=== PATIENT | male | born 1965 | race Caucasian/White ===

== ENCOUNTER 2020-01-29 09:39 | Day surgery (SDC) | payer BC ==
[2020-01-27 14:47] VITALS: BMI 32.5
[~2020-01-29 09:39] MED LIST: LACTATED RINGERS 1,000 ML IV SCH
[2020-01-29 10:02] VITALS: PULSE 84; RESP 16; TEMP 97.5
[2020-01-29 10:03] LABS: Glucose,Whole Blood 152 mg/dL (75-99)
[2020-01-29] MEDS ORDERED: LIDOCAINE 1% (10MG/ML) FOR IV START INTRADERMA ONE (10:03)
[2020-01-29] MEDS ORDERED: PROPOFOL 10 MG/ML 20 ML VIAL IV ONE (10:16)
--- NOTE | 2020-01-29 10:23 | P.GSHP ---
History of Present Illness H&P Date: 01/29/20 Chief Complaint: Screening colonoscopy This a 54-year-old male presents today for screening colonoscopy. Patient denies a significant GI complaints. Past Medical History Past Medical History: Atrial Fibrillation, Diabetes Mellitus, Hypertension History of Any Multi-Drug Resistant Organisms: None Reported Past Surgical History: No Surgical Hx Reported Additional Past Surgical History / Comment(s): rt shoulder cyst on clavicle Past Anesthesia/Blood Transfusion Reactions: No Reported Reaction Smoking Status: Never smoker - Past Family History Father Family Medical History: Coronary Artery Disease (CAD) Mother Family Medical History: Cancer Additional Family Medical History / Comment(s): OVARIAN CANCER Medications and Allergies Home Medications Medication Instructions Recorded Confirmed Type Lisinopril [Prinivil] 5 mg PO DAILY 03/01/15 01/29/20 History Aspirin 325 mg PO DAILY 01/27/20 01/29/20 History Cholecalciferol [Vitamin D3 (25 1,000 unit PO DAILY 01/27/20 01/29/20 History Mcg = 1000 Iu)] Cyanocobalamin (Vitamin B-12) 1,000 mcg PO DAILY 01/27/20 01/29/20 History [Vitamin B-12] Glimepiride [Amaryl] 1 mg PO BID 01/27/20 01/29/20 History [place]-3 Fatty Acids/Fish Oil [Fish 1 each PO DAILY 01/27/20 01/29/20 History Oil 1,000 mg Softgel] Propafenone [Rythmol] 150 mg PO TID 01/27/20 01/29/20 History sitaGLIPtin PHOS/metFORMIN HCL 1 each PO BID 01/27/20 01/29/20 History [Janumet 50-1,000 mg Tablet] Allergies Allergy/AdvReac Type Severity Reaction Status Date / Time No Known Allergies Allergy Verified 01/27/20 14:39 Surgical - Exam Vital Signs Temp Pulse Resp BP Pulse Ox 97.5 F L 84 16 198/124 97 01/29/20 09:53 01/29/20 09:53 01/29/20 09:53 01/29/20 09:53 01/29/20 09:53 - General well developed, well nourished, no distress - Eyes PERRL - ENT normal pinna - Neck no masses - Respiratory normal expansion - Cardiovascular Rhythm: regular - Abdomen Abdomen: soft, non tender Results - Labs Abnormal Lab Results - Last 24 Hours (Table) 01/29/20 Range/Units 10:00 POC Glucose (mg/dL) 152 H (75-99) mg/dL Assessment and Plan Assessment: We'll perform screening colonoscopy.
--- NOTE | 2020-01-29 10:29 | P.OP ---
Date of Procedure: 01/29/20 Preoperative Diagnosis: Screening colonoscopy Postoperative Diagnosis: Normal colonoscopy Procedure(s) Performed: Colonoscopy Anesthesia: MAC Surgeon: Koko Franco Pathology: none sent Condition: stable Disposition: PACU Description of Procedure: Normal colonoscopy
[2020-01-29 10:37] VITALS: BP 128/85
--- NOTE | 2020-02-02 10:01 | CDI ---
Outpatient Documentation Clarification Form Date: 02/02/20 CDS/Botany Teacher Name: Deanne Best Phone: If any questions, call Joie Major Private Branch Exchange Repairer at [phone] Patient Name: Brenden Wen Admit Date: 01/29/20 Discharge Date: 01/29/20 ATTENTION: The [facility] Coding Staff appreciate your assistance in clarifying documentation. Please respond to the clarification below the line at the bottom and electronically sign. The [facility] Coding staff will review the response and follow-up if needed. Please note: Queries are made part of the Legal Health Record. If you have any questions, please contact the Private Branch Exchange Repairer. Dear Dr. Franco, Please provide an addendum to the procedure note for this patient. Please include the procedure description in the addendum. Thank you for your kind consideration. SHAILA
== END 2020-01-29 11:00 | disposition home or self-care (01) ==
LOC: ORWHC2ENDO 09:39
PROVIDERS: ATTEND Surgery
DX: Z12.11 Encounter for screening for malignant neoplasm of colon (principal); I48.91 Unspecified atrial fibrillation; E11.9 Type 2 diabetes mellitus without complications; I10 Essential (primary) hypertension; Z98.890 Other specified postprocedural states; Z82.49 Family history of ischemic heart disease and other diseases of the circulatory system; Z80.41 Family history of malignant neoplasm of ovary; Z79.84 Long term (current) use of oral hypoglycemic drugs; Z79.82 Long term (current) use of aspirin; Z79.899 Other long term (current) drug therapy
CPT/HCPCS: J2704; G0121; 45378

== ENCOUNTER 2021-02-17 16:22 | Emergency (ER) | payer BC ==
--- NOTE | 2021-02-17 18:22 | ED ---
General Adult HPI <Panchito Mayo - Last Filed: 02/17/21 18:19> - General Source: patient, RN notes reviewed, old records reviewed <Luke Berrios - Last Filed: 02/17/21 20:27> - General Stated complaint: weakness, SOB, cough Time Seen by Provider: 02/17/21 18:20 - History of Present Illness Initial comments: Patient seen for advanced triage purposes: Patient is a 52-year-old male presenting for not feeling well for about a week. patient has had a cough and some shortness of breath. He has been weak as well. No fevers at home however has felt clammy. patient has also had congestion. patient's had covid which was diagnosed 2 weeks ago. Patient has no other complaints at this time including chest pain, abdominal pain, nausea or vomiting, headache, or visual changes. (Panchito Mayo) This is a 55-year-old male presents emergency room stating he's been not feeling good for about 45 days. Patient states today he started having a cough and shortness of breath per patient states she's been exposed to his went COVID. Patient states she has not yet got the vaccine. Patient states he also started having a fever today which she had not been expansion prior to that. Patient denies any loss of taste or smell denies any diarrhea. Patient denies any chest pain or palpitations. Patient denies abdominal pain. Patient denies any nausea vomiting. Patient denies headache patient denies any numbness weakness. Patient denies any lightheadedness. (Luke Berrios) - Related Data Home Medications Medication Instructions Recorded Confirmed Lisinopril [Prinivil] 5 mg PO DAILY 03/01/15 02/17/21 Aspirin 325 mg PO DAILY 01/27/20 02/17/21 Glimepiride [Amaryl] 1 mg PO BID 01/27/20 02/17/21 [place]-3 Fatty Acids/Fish Oil [Fish 1 cap PO DAILY 01/27/20 02/17/21 Oil 1,000 mg Softgel] Propafenone [Rythmol] 150 mg PO TID 01/27/20 02/17/21 sitaGLIPtin PHOS/metFORMIN HCL 1 tab PO BID 01/27/20 02/17/21 [Janumet 50-1,000 mg Tablet] Dulaglutide [Trulicity] 1.5 mg SQ MO 02/17/21 02/17/21 Previous Rx's Medication Instructions Recorded Dexamethasone [Decadron] 6 mg PO DAILY #7 tablet 02/17/21 Allergies Allergy/AdvReac Type Severity Reaction Status Date / Time No Known Allergies Allergy Verified 02/17/21 19:14 Review of Systems ROS Other: All systems not noted in ROS Statement are negative. <Panchito Mayo - Last Filed: 02/17/21 18:19> ROS Other: All systems not noted in ROS Statement are negative. <Luke Berrios - Last Filed: 02/17/21 20:27> ROS Statement: Those systems with pertinent positive or pertinent negative responses have been documented in the HPI. Past Medical History Past Medical History: Atrial Fibrillation, Diabetes Mellitus, Hypertension History of Any Multi-Drug Resistant Organisms: None Reported Past Surgical History: No Surgical Hx Reported Additional Past Surgical History / Comment(s): rt shoulder cyst on clavicle Past Anesthesia/Blood Transfusion Reactions: No Reported Reaction Smoking Status: Never smoker - Past Family History Father Family Medical History: Coronary Artery Disease (CAD) Mother Family Medical History: Cancer Additional Family Medical History / Comment(s): OVARIAN CANCER <Panchito Mayo - Last Filed: 02/17/21 18:19> General Exam General appearance: alert Head exam: Present: atraumatic Eye exam: Present: normal appearance, PERRL, EOMI. Absent: scleral icterus, conjunctival injection Respiratory exam: Absent: respiratory distress <Panchito Mayo - Last Filed: 02/17/21 18:19> <Luke Berrios - Last Filed: 02/17/21 20:27> - General Exam Comments Initial Comments: GENERAL: Patient is well-developed and well-nourished. Patient is nontoxic and well- hydrated and is in mild distress. ENT: Neck is soft and supple. No significant lymphadenopathy is noted. Oropharynx is clear. Moist mucous membranes. Neck has full range of motion without eliciting any pain. EYES: The sclera were anicteric and conjunctiva were pink and moist. Extraocular movements were intact and pupils were equal round and reactive to light. Eyelids were unremarkable. PULMONARY: Unlabored respirations. Good breath sounds bilaterally. No audible rales rhonchi or wheezing was noted. CARDIOVASCULAR: There is a regular rate and rhythm without any murmurs gallops or rubs. ABDOMEN: Soft and nontender with normal bowel sounds. SKIN: Skin is clear with no lesions or rashes and otherwise unremarkable. NEUROLOGIC: Patient is alert and oriented x3. Cranial nerves II through XII are grossly intact. Motor and sensory are also intact. Normal speech, volume and content. Symmetrical smile. MUSCULOSKELETAL: Normal extremities with adequate strength and full range of motion. LYMPHATICS: No significant lymphadenopathy is noted PSYCHIATRIC: Normal psychiatric evaluation. (Luke Berrios) Course Vital Signs 02/17/21 02/17/21 02/17/21 18:19 19:48 20:08 Temperature 103.4 F H 100 F H Pulse Rate 62 94 Respiratory 18 20 Rate Blood Pressure 134/87 114/84 O2 Sat by Pulse 98 95 Oximetry Medical Decision Making <Luke Berrios - Last Filed: 02/17/21 20:27> - Medical Decision Making Patient's chest x-ray shows slight infiltrates consistent with "pneumonia. Patient got Decadron 10 mg IV push in the emergency department. Patient also received monoclonal antibodies. (Luke Berrios) - Lab Data Lab Results 02/17/21 Range/Units 18:54 Coronavirus (PCR) Detected A (Not Detectd) Disposition <Panchito Mayo - Last Filed: 02/17/21 18:19> Is patient prescribed a controlled substance at d/c from ED?: No Time of Disposition: 20:26 <Luke Berrios - Last Filed: 02/17/21 20:27> Clinical Impression: Pneumonia due to COVID-19 virus Disposition: HOME SELF-CARE Condition: Good Instructions (If sedation given, give patient instructions): Coronavirus Disease 2019 (COVID-19) Additional Instructions: Patient should return if there is any difficulty breathing Prescriptions: Dexamethasone [Decadron] 6 mg PO DAILY #7 tablet Referrals: Ana Lilia Singh MD [Primary Care Provider] - 1-2 days
[2021-02-17] MEDS ORDERED: IBUPROFEN 600 MG TAB PO STA (18:23)
[2021-02-17] MEDS ORDERED: ACETAMINOPHEN TAB 500 MG TAB PO STA (18:23)
[2021-02-17] MEDS ORDERED: SODIUM CHLORIDE 0.9% 50 ML IVPB ONE (19:30)
[2021-02-17] MEDS ORDERED: BAMLANIVIMAB (EUA) 700 MG, ETESEVIMAB (EUA) 1,400 MG in SODIUM CHLORIDE 0.9% 50 ML IVPB ONE (19:45)
[2021-02-17 19:51] VITALS: TEMP 100
--- NOTE | 2021-02-17 20:01 | XR ---
EXAMINATION TYPE: XR chest 2V DATE OF EXAM: 02/17/2021 CLINICAL HISTORY: cough. TECHNIQUE: Frontal and lateral view of the chest. COMPARISON: 03/01/2015 FINDINGS: The cardiomediastinal silhouette is within normal limits for size. Pulmonary vasculature i s normal. There are mild subtle patchy peripheral airspace opacities over the bilateral lung bases an d right midlung. No pleural effusion. No pneumothorax seen. No acute displaced osseous fracture. IMPRESSION: Mild subtle patchy airspace opacities may represent atypical pneumonia including Covid 19.
[2021-02-17 20:13] VITALS: BP 114/84; PULSE 94; RESP 20
[2021-02-17] MEDS ORDERED: DEXAMETHASONE SOD PHOSPHATE 10 MG/ML 1 ML VIAL IVP STA (20:24)
== END 2021-02-17 22:11 | disposition home or self-care (01) ==
LOC: EC 16:22
DX: U07.1 COVID-19 (principal); J12.82 Pneumonia due to coronavirus disease 2019; E11.9 Type 2 diabetes mellitus without complications; I10 Essential (primary) hypertension; I48.91 Unspecified atrial fibrillation; Z79.82 Long term (current) use of aspirin; Z79.52 Long term (current) use of systemic steroids; Z79.84 Long term (current) use of oral hypoglycemic drugs
CPT/HCPCS: 87635; 71046; 96365; 96375; 99285; J1100; J3490

== ENCOUNTER 2023-12-21 16:47 | Inpatient (IN) | payer BC ==
--- NOTE | 2023-12-21 17:26 | ED ---
Extremity Problem HPI - General Chief complaint: Extremity Injury, Lower Stated complaint: Left toe infection spreading Time Seen by Provider: 12/21/23 17:15 Source: patient, family, RN notes reviewed Mode of arrival: ambulatory Limitations: no limitations - History of Present Illness Initial comments: This is a 58-year-old male who presents to the emergency department for a left second toe infection. The infection started about 3 weeks ago. He went to a different emergency department initially and was started on a 7-day course of Keflex. He has since finished this. However, states that it has not gotten any better. Over the last week in particular it has gotten much worse. The whole toe has been swollen and the redness and swelling of started to go up the foot and leg. This is also increasingly painful. Denies any fevers or chills. - Related Data Home Medications Medication Instructions Recorded Confirmed Aspirin 325 mg PO DAILY 01/27/20 12/21/23 Propafenone HCl 225 mg PO DAILY 12/21/23 12/21/23 Allergies Allergy/AdvReac Type Severity Reaction Status Date / Time No Known Allergies Allergy Verified 12/21/23 17:14 Review of Systems ROS Statement: Those systems with pertinent positive or pertinent negative responses have been documented in the HPI. ROS Other: All systems not noted in ROS Statement are negative. Past Medical History Past Medical History: Atrial Fibrillation, Diabetes Mellitus, Hypertension History of Any Multi-Drug Resistant Organisms: None Reported Past Surgical History: Cardiac Ablation Additional Past Surgical History / Comment(s): rt shoulder cyst on clavicle Past Anesthesia/Blood Transfusion Reactions: No Reported Reaction Past Psychological History: No Psychological Hx Reported Smoking Status: Never smoker Past Alcohol Use History: None Reported Past Drug Use History: None Reported - Past Family History Father Family Medical History: Coronary Artery Disease (CAD) Mother Family Medical History: Cancer Additional Family Medical History / Comment(s): OVARIAN CANCER General Exam Limitations: no limitations General appearance: alert, in no apparent distress Head exam: Present: atraumatic, normocephalic, normal inspection Respiratory exam: Present: normal lung sounds bilaterally. Absent: respiratory distress, wheezes, rales, rhonchi, stridor Cardiovascular Exam: Present: regular rate, normal rhythm, normal heart sounds. Absent: systolic murmur, diastolic murmur, rubs, gallop, clicks Extremities exam: Present: other (The left second toe is swollen, erythematous, and slightly purple in color. There is an ulceration on the tip of it with active drainage. Erythema extends to the majority of the foot along with warmth and swelling. 2+ DP and PT pulses.) Neurological exam: Present: alert, oriented X3, CN II-XII intact Psychiatric exam: Present: normal affect, normal mood Course Vital Signs 12/21/23 12/21/23 17:10 20:36 Temperature 98.6 F 98.4 F Pulse Rate 78 74 Respiratory 18 18 Rate Blood Pressure 177/93 148/97 O2 Sat by Pulse 99 96 Oximetry Medical Decision Making - Medical Decision Making This is a 58-year-old male who presents to the emergency department for concerns of an infection in his left second toe. Was pt. sent in by a medical professional or institution? @ -No Did you speak to anyone other than the patient for history? @ -No Did you review nursing and triage notes? @ -Yes, and I agree, it is accurate with regards to the patient's symptoms. Were old charts reviewed? @ -No Differential Diagnosis? @ -Differential Foot Infection: Cellulitis, abscess, injury, burn, this is not meant to be an all-inclusive list. EKG interpreted by me (3pts min.)? @ -Not obtained X-rays interpreted by me (1pt min.)? @ -X-ray of the left foot obtained. My interpretation identifies soft tissue swelling over the left second digit. CT interpreted by me (1pt min.)? @ -Not obtained U/S interpreted by me (1pt. min.)? @ -Not obtained What testing was considered but not performed? (CT, X-rays, U/S, labs)? Why? @ -None What meds were considered but not given? Why? @ -None Did you discuss the management of the patient with other professionals? @ -Yes, Yakelin Willis with [facility], who accepts the patient for admission Did you reconcile home meds? @ -Yes Was smoking cessation discussed for >3mins.? @ -No Was critical care preformed (if so, how long)? @ -No Were there social determinants of health that impacted care today? How? (Homelessness, low income, unemployed, alcoholism, drug addiction, transportation, low edu. Level, literacy, decrease access to med. care, long-term, rehab)? @ -No Was there de-escalation of care discussed even if they declined? (Discuss DNR or withdrawal of care, Hospice)? @ -No What co-morbidities impacted this encounter? (DM, HTN, Smoking, COPD, CAD, Cancer, CVA, Hep., AIDS, mental health diagnosis, sleep apnea, morbid obesity)? @ -DM, HTN Was patient admitted / discharged? @ -Admitted. Lab work demonstrates a mildly elevated CRP of 2.9. X-ray of the left foot obtained demonstrating osteomyelitis of the distal phalanx second digit left foot. Given the findings of osteomyelitis and failure of outpatient management, patient admitted to medicine for osteomyelitis of the second digit on the left foot. Wound and blood cultures obtained. He was started on vancomycin and Zosyn. Consult placed for infectious disease. Case discussed with ED attending Dr. Medina. Undiagnosed new problem with uncertain prognosis? @ -None Drug Therapy requiring intensive monitoring for toxicity (Heparin, Nitro, Insulin, Cardizem)? @ -None Were any procedures done? @ -None Diagnosis/symptom? @ -Osteomyelitis of second digit left foot Acute, or Chronic, or Acute on Chronic? @ -Acute Uncomplicated (without systemic symptoms) or Complicated (systemic symptoms)? @ -Uncomplicated Side effects of treatment? @ -None Exacerbation, Progression, or Severe Exacerbation] @ -Not applicable Poses a threat to life or bodily function? @ -Yes, can lead to severe infection, which can lead to loss of limb - Lab Data Result diagrams: 12/21/23 18:28 12/21/23 18:28 Lab Results 12/21/23 12/21/23 12/21/23 Range/Units 18:28 18:28 18:28 WBC 9.4 (3.8-10.6) k/uL RBC 5.72 (4.30-5.90) m/uL Hgb 16.1 (13.0-17.5) gm/dL Hct 47.1 (39.0-53.0) % MCV 82.3 (80.0-100.0) fL MCH 28.1 (25.0-35.0) pg MCHC 34.1 (31.0-37.0) g/dL RDW 12.4 (11.5-15.5) % Plt Count 223 (150-450) k/uL MPV 9.6 Neutrophils % 69 % Lymphocytes % 19 % Monocytes % 9 % Eosinophils % 1 % Basophils % 1 % Neutrophils # 6.5 (1.3-7.7) k/uL Lymphocytes # 1.8 (1.0-4.8) k/uL Monocytes # 0.9 (0-1.0) k/uL Eosinophils # 0.1 (0-0.7) k/uL Basophils # 0.1 (0-0.2) k/uL Sodium 133 L (137-145) mmol/L Potassium 4.6 (3.5-5.1) mmol/L Chloride 100 (98-107) mmol/L Carbon Dioxide 23 (22-30) mmol/L Anion Gap 10 mmol/L BUN 24 H (9-20) mg/dL Creatinine 1.13 (0.66-1.25) mg/dL Est GFR (CKD-EPI)AfAm 84 (>60 ml/min/1.73 sqM) Est GFR (CKD-EPI)NonAf 73 (>60 ml/min/1.73 sqM) Glucose 460 H (74-99) mg/dL Plasma Lactic Acid Andre 1.6 (0.7-2.0) mmol/L Calcium 9.7 (8.4-10.2) mg/dL Total Bilirubin 0.8 (0.2-1.3) mg/dL AST 22 (17-59) U/L ALT 16 (4-49) U/L Alkaline Phosphatase 100 (38-126) U/L C-Reactive Protein 2.9 H (<1.0) mg/dL Total Protein 7.1 (6.3-8.2) g/dL Albumin 4.5 (3.5-5.0) g/dL - Radiology Data Radiology results: report reviewed, image reviewed Disposition Clinical Impression: Osteomyelitis of second toe of left foot Disposition: ADMITTED IP TO THIS HOSP
--- NOTE | 2023-12-21 18:42 | XR ---
EXAMINATION TYPE: XR foot complete LT DATE OF EXAM: 12/21/2023 COMPARISON: None HISTORY: Toe infection second digit TECHNIQUE: 3 view left foot FINDINGS: Large plantar calcaneal heel spurs are present. Achilles tendon calcaneal heel spur is pres ent. There is loss of the cortex of the anterior distal second digit phalanx. Soft tissue swelling is over the second digit. Findings are compatible with acute osteomyelitis of the distal phalanx second digi t. No acute fractures are evident. Joint spaces are preserved. No additional suspicious cortical erosion s evident. IMPRESSION: 1. Osteomyelitis distal phalanx second digit left foot [facility], , 12/21/2023 6:39 PM
[2023-12-21] MEDS ORDERED: VANCOMYCIN IV PER PHARMACY 1 EACH MISC MISCELLANE PRN (18:49)
[2023-12-21] MEDS ORDERED: ACETAMINOPHEN TAB 325 MG TAB PO PRN (18:56)
[2023-12-21] MEDS ORDERED: ONDANSETRON 4 MG/2 ML VIAL IVP PRN (18:56)
[2023-12-21] MEDS ORDERED: MORPHINE SULFATE 4 MG/ML SYRINGE IV PRN (18:56)
[2023-12-21] MEDS ORDERED: NALOXONE 0.4 MG/ML 1 ML VIAL IV PRN (18:56)
[2023-12-21] MEDS ORDERED: IBUPROFEN 400 MG TAB PO PRN (18:56)
[2023-12-21 19:03] LABS: ALT 16 U/L (4-49); AST 22 U/L (17-59); African American GFR (CKD) 84 (>60 ml/min/1.73 sqM); Albumin 4.5 g/dL (3.5-5.0); Alkaline Phosphatase 100 U/L (38-126); Anion Gap 10 mmol/L; Blood Urea Nitrogen 24 mg/dL (9-20); C Reactive Protein 2.9 mg/dL (<1.0); Calcium 9.7 mg/dL (8.4-10.2); Carbon Dioxide 23 mmol/L (22-30); Chloride 100 mmol/L (98-107); Glucose 460 mg/dL (74-99); Non-African American GFR(CKD) 73 (>60 ml/min/1.73 sqM); Potassium 4.6 mmol/L (3.5-5.1); Sodium 133 mmol/L (137-145); Total Bilirubin 0.8 mg/dL (0.2-1.3); Total Protein 7.1 g/dL (6.3-8.2)
[2023-12-21 19:50] LABS: Basophils # (A) 0.1 k/uL (0-0.2); Basophils % (A) 1 %; Eosinophils # (A) 0.1 k/uL (0-0.7); Eosinophils % (A) 1 %; HCT 47.1 % (39.0-53.0); HGB 16.1 gm/dL (13.0-17.5); Lymphocytes # (A) 1.8 k/uL (1.0-4.8); Lymphocytes % (A) 19 %; MCH 28.1 pg (25.0-35.0); MCHC 34.1 g/dL (31.0-37.0); MCV 82.3 fL (80.0-100.0); Mean Platelet Volume 9.6; Monocytes # (A) 0.9 k/uL (0-1.0); Monocytes % (A) 9 %; Neutrophils # (A) 6.5 k/uL (1.3-7.7); Neutrophils % (A) 69 %; Platelet Count 223 k/uL (150-450); RBC 5.72 m/uL (4.30-5.90); RDW 12.4 % (11.5-15.5); WBC 9.4 k/uL (3.8-10.6)
[2023-12-21] MEDS: SODIUM CHLORIDE 0.9% 1,000 ML IV STA (20:02)
[2023-12-21] MEDS: PIPERACILLIN-TAZOBACTAM 3.375 GM in SODIUM CHLORIDE 0.9% 100 ML IVPB STA (20:12)
[2023-12-21] MEDS: KETOROLAC 15 MG/ML 1 ML VIAL IVP PRN (21:45)
[2023-12-21] MEDS: VANCOMYCIN 1,500 MG in SODIUM CHLORIDE 0.9% 500 ML 500 ML IVPB ONE (21:49)
[2023-12-22 01:41] LABS: Erythrocyte Sedimentation Rate 27 mm/Hr (0-20)
[2023-12-22] MEDS: PIPERACILLIN-TAZOBACTAM 3.375 GM in SODIUM CHLORIDE 0.9% 100 ML IVPB SCH (01:50)
[2023-12-22 05:01] LABS: African American GFR (CKD) >90 (>60 ml/min/1.73 sqM); Non-African American GFR(CKD) >90 (>60 ml/min/1.73 sqM)
[2023-12-22 07:13] LABS: Glucose,Whole Blood 233 mg/dL (70-110)
[2023-12-22] MEDS: PROPAFENONE 225 MG TAB PO SCH (07:27)
[2023-12-22] MEDS: ASPIRIN 325 MG TAB PO SCH (07:28)
[2023-12-22] MEDS: PANTOPRAZOLE 40 MG/10 ML VIAL IV SCH (08:20)
--- NOTE | 2023-12-22 09:21 | P.HPIM ---
History of Present Illness H&P Date: 12/22/23 History of present illness: 58-year-old male patient with past medical history significant for diabetes mellitus, hypertension, atrial fibrillation who presented to ER with a complaint of left second toe infection. Patient stated that he noticed ulcer of left second toe about 3 weeks ago, after patient bumped his forefoot. He went to ED initially and was started on 7-day course of Keflex and completed. Patient did not notice any improvement. Patient stated that it has progressively gotten wor se, patient noticed that whole toe was swollen red and has started to expand to involve foot and his lower leg, has become increasingly painful. Patient denied any fever or chills. Patient is afebrile, heart rate 70, respiratory rate 16, blood pressure 151/88, saturating 98% on room air. CBC showed WBCs 9.4, hemoglobin 16.1, platelet 223 ESR 27, CRP 2.9. Sodium 133 potassium 4.6 BUN 24, creatinine 1.13 improved to 0.87. X-ray left foot showed osteomyelitis of distal phalanx of second digit of left foot. REVIEW OF SYSTEMS: CONSTITUTIONAL: No fever, no malaise, no fatigue. HEENT: No recent visual problems or hearing problems. Denied any sore throat. CARDIOVASCULAR: No chest pain, orthopnea, PND, no palpitations, no syncope. PULMONARY: No shortness of breath, no cough, no hemoptysis. GASTROINTESTINAL: No diarrhea, no nausea, no vomiting, no abdominal pain. NEUROLOGICAL: No headaches, no weakness, no numbness. HEMATOLOGICAL: Denies any bleeding or petechiae. GENITOURINARY: Denies any burning micturition, frequency, or urgency. MUSCULOSKELETAL/RHEUMATOLOGICAL: Denies any joint pain, swelling, or any muscle pain. ENDOCRINE: Denies any polyuria or polydipsia. The rest of the 14-point review of systems is negative. PHYSICAL EXAMINATION: GENERAL: The patient is A&O x3, NAD HEENT: EOMI, Sclerae anicteric, Moist Mucous membranes Neck: Supple, Non tender, No JVD PULMONARY: Equal breath souds B/L, No wheezing, No crackles. CARDIOVASCULAR: S1, S2 present. No murmurs, rubs, or gallops. ABDOMEN: Soft, nontender, nondistended, normoactive bowel sounds. No guarding or rebound tenderness. MUSCULOSKELETAL: No edema, No cyanosis. No clubbing. Normal ROM. Intact peripheral pulses. EXTREMITIES: No cyanosis, clubbing, or pedal edema. NEUROLOGICAL: CN 2-12 grossly intact. No FND Assessment and plan: Left foot osteomyelitis: Distal phalanx of second digit Presented with left second toe infection for 3 weeks X-ray foot showed osteomyelitis of distal phalanx second digit left foot. Monitor ESR CRP Monitor vitals and CBC Vancomycin and Rocephin Vascular surgery consulted ID consulted Diabetes mellitus: Uncontrolled Accu-Cheks, diabetic diet HbA1c 16.5 Patient currently not taking any medications at home. Sliding-scale insulin And Lantus. Will need to continue insulin at discharge, patient agreeable. Paroxysmal atrial fibrillation: Patient has history of atrial fibrillation, currently on aspirin 325 mg daily Continue home med Rythmol Patient agreeable to start anticoagulation at discharge, was on Xarelto previously DVT prophylaxis Subcutaneous heparin Monitor vital signs and labs Continue telemetry monitoring Labs and medication were reviewed. Continue same treatment. Resume home medication. Further recommendations as per clinical course of the patient Dictation was produced using [employer] dictation software. please excuse any grammatical, word or spelling errors. Past Medical History Past Medical History: Atrial Fibrillation, Diabetes Mellitus, Hypertension Additional Past Medical History / Comment(s): was dm-was on pills, stopped taking due to lawsuits. recent weight loss 30lbs/6-8months History of Any Multi-Drug Resistant Organisms: None Reported Past Surgical History: Cardiac Ablation Additional Past Surgical History / Comment(s): rt shoulder cyst on clavicle Past Anesthesia/Blood Transfusion Reactions: No Reported Reaction Past Psychological History: No Psychological Hx Reported Smoking Status: Never smoker Past Alcohol Use History: None Reported Past Drug Use History: None Reported - Past Family History Father Family Medical History: Coronary Artery Disease (CAD) Mother Family Medical History: Cancer Additional Family Medical History / Comment(s): OVARIAN CANCER Medications and Allergies Home Medications Medication Instructions Recorded Confirmed Type Aspirin 325 mg PO DAILY 01/27/20 12/21/23 History Propafenone HCl 225 mg PO DAILY 12/21/23 12/21/23 History Allergies Allergy/AdvReac Type Severity Reaction Status Date / Time No Known Allergies Allergy Verified 12/21/23 17:14 Physical Exam Vitals: Vital Signs Temp Pulse Pulse Resp BP BP Pulse Ox 12/22/23 07:10 97.5 F L 70 16 151/88 98 12/22/23 01:48 98.2 F 80 16 156/89 93 L 12/21/23 20:50 98.4 F 74 16 149/101 96 12/21/23 20:36 98.4 F 74 18 148/97 96 12/21/23 17:10 98.6 F 78 18 177/93 99 Intake and Output 12/21/23 12/22/23 12/22/23 22:59 06:59 14:59 Other: Voiding Method Toilet # Voids 3 Weight 80 kg Results CBC & Chem 7: 12/21/23 18:28 12/22/23 03:10 Labs: Abnormal Lab Results - Last 24 Hours (Table) 12/21/23 12/21/23 12/22/23 Range/Units 18:28 18:28 07:12 ESR 27 H (0-20) mm/Hr Sodium 133 L (137-145) mmol/L BUN 24 H (9-20) mg/dL Glucose 460 H (74-99) mg/dL POC Glucose (mg/dL) 233 H (70-110) mg/dL C-Reactive Protein 2.9 H (<1.0) mg/dL Thrombosis Risk Factor Assmnt - Choose All That Apply Any of the Below Risk Factors Present?: Yes Each Factor Represents 1 point: Age 41-60 years, Obesity (BMI >25) Other Risk Factors: No Other congenital or acquired thrombophilia - If yes, enter type in comment: No Thrombosis Risk Factor Assessment Total Risk Factor Score: 2 Thrombosis Risk Factor Assessment Level: Low Risk
[2023-12-22] MEDS ORDERED: DEXTROSE 50% SYRINGE 50 ML IVP PRN ×2 (09:22)
--- NOTE | 2023-12-22 10:08 | P.GSCN ---
History of Present Illness History of present illness: 58-year-old gentleman patient came to the emergency room last night with history of left foot second toe ulcer on the plantar aspect with progressing involving the dorsal aspect of the foot. Patient was on antibiotic by his primary physician for these things going on for the last 3 weeks without any improvement 3 of the foot shows distal phalanx osteomyelitis Medical history history of diabetes hypertension A-fib patient had a ablation intervention done at [facility] In the past patient is not on any anticoagulation Neck is supple no bruit appreciated Chest is clear good in both lungs. Second sound present Abdomen is soft nontender Vascular brachial radial pulses are present femoral dorsal pedis is present palpable left foot second toe has a ulcer on the plantar aspect involving the distal phalanx and marked redness of the of the toe with some tenderness noted Discussed with the patient will need left foot second toe amputation continue with antibiotic review keep the patient n.p.o. midnight consent for left foot second toe amputation risk and complication discussed Past Medical History Past Medical History: Atrial Fibrillation, Diabetes Mellitus, Hypertension Additional Past Medical History / Comment(s): was dm-was on pills, stopped taking due to lawsuits. recent weight loss 30lbs/6-8months History of Any Multi-Drug Resistant Organisms: None Reported Past Surgical History: Cardiac Ablation Additional Past Surgical History / Comment(s): rt shoulder cyst on clavicle Past Anesthesia/Blood Transfusion Reactions: No Reported Reaction Past Psychological History: No Psychological Hx Reported Smoking Status: Never smoker Past Alcohol Use History: None Reported Past Drug Use History: None Reported - Past Family History Father Family Medical History: Coronary Artery Disease (CAD) Mother Family Medical History: Cancer Additional Family Medical History / Comment(s): OVARIAN CANCER Medications and Allergies Home Medications Medication Instructions Recorded Confirmed Type Aspirin 325 mg PO DAILY 01/27/20 12/21/23 History Propafenone HCl 225 mg PO DAILY 12/21/23 12/21/23 History Allergies Allergy/AdvReac Type Severity Reaction Status Date / Time No Known Allergies Allergy Verified 12/21/23 17:14 Surgical - Exam Vital Signs Temp Pulse Resp BP Pulse Ox 98.6 F 78 18 177/93 99 12/21/23 17:10 12/21/23 17:10 12/21/23 17:10 12/21/23 17:10 12/21/23 17:10 Results - Labs 12/21/23 18:28 12/22/23 03:10 Abnormal Lab Results - Last 24 Hours (Table) 12/21/23 12/21/23 12/22/23 Range/Units 18:28 18: 03:10 ESR 27 H (0-20) mm/Hr Sodium 133 L (137-145) mmol/L BUN 24 H (9-20) mg/dL Glucose 460 H (74-99) mg/dL POC Glucose (mg/dL) (70-110) mg/dL Hemoglobin A1c 16.2 H (<=6.0) % C-Reactive Protein 2.9 H (<1.0) mg/dL 12/22/23 Range/Units 07:12 ESR (0-20) mm/Hr Sodium (137-145) mmol/L BUN (9-20) mg/dL Glucose (74-99) mg/dL POC Glucose (mg/dL) 233 H (70-110) mg/dL Hemoglobin A1c (<=6.0) % C-Reactive Protein (<1.0) mg/dL Diabetes panel 12/21/23 12/22/23 12/22/23 Range/Units 18: 03:10 03:10 Sodium 133 L (137-145) mmol/L Potassium 4.6 (3.5-5.1) mmol/L Chloride 100 (98-107) mmol/L Carbon Dioxide 23 (22-30) mmol/L BUN 24 H (9-20) mg/dL Creatinine 1.13 0.87 (0.66-1.25) mg/dL Glucose 460 H (74-99) mg/dL Hemoglobin A1c 16.2 H (<=6.0) % Calcium 9.7 (8.4-10.2) mg/dL AST 22 (17-59) U/L ALT 16 (4-49) U/L Alkaline Phosphatase 100 (38-126) U/L Total Protein 7.1 (6.3-8.2) g/dL Albumin 4.5 (3.5-5.0) g/dL Calcium panel 12/21/23 Range/Units 18:28 Calcium 9.7 (8.4-10.2) mg/dL Albumin 4.5 (3.5-5.0) g/dL Pituitary panel 12/21/23 12/22/23 Range/Units 18:28 03:10 Sodium 133 L (137-145) mmol/L Potassium 4.6 (3.5-5.1) mmol/L Chloride 100 (98-107) mmol/L Carbon Dioxide 23 (22-30) mmol/L BUN 24 H (9-20) mg/dL Creatinine 1.13 0.87 (0.66-1.25) mg/dL Glucose 460 H (74-99) mg/dL Calcium 9.7 (8.4-10.2) mg/dL Adrenal panel 12/21/23 12/22/23 Range/Units 18:28 03:10 Sodium 133 L (137-145) mmol/L Potassium 4.6 (3.5-5.1) mmol/L Chloride 100 (98-107) mmol/L Carbon Dioxide 23 (22-30) mmol/L BUN 24 H (9-20) mg/dL Creatinine 1.13 0.87 (0.66-1.25) mg/dL Glucose 460 H (74-99) mg/dL Calcium 9.7 (8.4-10.2) mg/dL Total Bilirubin 0.8 (0.2-1.3) mg/dL AST 22 (17-59) U/L ALT 16 (4-49) U/L Alkaline Phosphatase 100 (38-126) U/L Total Protein 7.1 (6.3-8.2) g/dL Albumin 4.5 (3.5-5.0) g/dL
[2023-12-22] MEDS: VANCOMYCIN 1,500 MG in SODIUM CHLORIDE 0.9% 500 ML 500 ML IVPB SCH (11:02)
[2023-12-22] MEDS: HEPARIN SODIUM,PORCINE 5,000 UNIT/ML 1 ML VIAL SQ SCH (11:03)
[2023-12-22 11:58] LABS: Glucose,Whole Blood 294 mg/dL (70-110)
[2023-12-22] MEDS: INSULIN ASPART (NovoLOG) 100 UNIT/ML VIAL SQ SCH (12:44)
[2023-12-22 13:33] VITALS: BMI 24.5
[2023-12-22 17:18] LABS: Glucose,Whole Blood 267 mg/dL (70-110)
[2023-12-22 20:08] LABS: Glucose,Whole Blood 269 mg/dL (70-110)
[2023-12-23 07:11] LABS: Glucose,Whole Blood 259 mg/dL (70-110)
[2023-12-23] MEDS: PANTOPRAZOLE 40 MG TABLET PO SCH (07:27)
[2023-12-23 10:01] LABS: BUN/Creat Ratio 16.22 Ratio (12.00-20.00); Blood Urea Nitrogen 14.6 mg/dL (9.0-27.0); Calcium 8.6 mg/dL (8.7-10.3); Carbon Dioxide 21.3 mmol/L (21.6-31.8); Chloride 102 mmol/L (96-109); Glucose 334 mg/dL (70-110); Potassium 4.3 mmol/L (3.5-5.5); Sodium 135 mmol/L (135-145)
[2023-12-23 10:02] LABS: Basophils # (A) 0.05 X 10*3/uL (0.00-0.10); Basophils % (A) 0.8 %; Eosinophils # (A) 0.11 X 10*3/uL (0.04-0.35); Eosinophils % (A) 1.8 %; HCT 42.5 % (39.6-50.0); HGB 14.6 g/dL (13.0-17.0); Lymphocytes # (A) 2.19 X 10*3/uL (0.90-5.00); MCH 27.3 pg (27.0-32.0); MCHC 34.4 g/dL (32.0-37.0); MCV 79.4 FL (80.0-97.0); Mean Platelet Volume 11.8 FL (9.5-12.2); Monocytes # (A) 0.53 X 10*3/uL (0.20-1.00); Monocytes % (A) 8.7 %; NRBC Per 100 WBC 0 X 10*3/uL (0.00-0.01); Neutrophils # (A) 3.18 X 10*3/uL (1.80-7.70); Neutrophils % (A) 52.2 %; Platelet Count 217 X 10*3/uL (140-440); RBC 5.35 X 10*6/uL (4.40-5.60); RDW 11.9 % (11.5-14.5); WBC 6.09 X 10*3/uL (4.50-10.00)
--- NOTE | 2023-12-23 10:04 | P.CONS ---
History of Present Illness - Reason for Consult Consult date: 12/22/23 Osteomyelitis left second toe Requesting physician: Estefanía Kaufman - Chief Complaint Left second toe swelling and redness x weeks - History of Present Illness Patient is a 58-year-old male with a past medical history significant for diabetes mellitus hypertension atrial fibrillation has been dealing with the left second toe plantar callus and maceration for more than a month patient mention he has been taking care of it for By keeping it clean however noticed to have increasing swelling redness to the left second toe over the last 1 week for the patient presented to the hospital patient did have diabetic neuropathy has been complaining of some pressure but denies any sharp or throbbing pain patient denies high-grade fever or chills on presentation to the hospital the patient was afebrile and no fever have been called subsequently patient was not tach ycardic hypotensive or hypoxic, patient did have a white count of 9.4 creatinine is 1.13 liver enzymes are normal blood and local culture has been obtained patient did have x-ray of the foot osteomyelitis distal phalanx second digit left foot patient was started on Rocephin and vancomycin infectious disease was consulted for further management of antibiotic therapy patient has already been seen by vascular surgery who is planning for amputation of this toe tomorrow morning at the patient seem to have agreed to wait Review of Systems Positive point and negatives has been mentioned in the HPI, complete review of systems was performed and all other systems are negative Past Medical History Past Medical History: Atrial Fibrillation, Diabetes Mellitus, Hypertension Additional Past Medical History / Comment(s): was dm-was on pills, stopped taking due to lawsuits. recent weight loss 30lbs/6-8months History of Any Multi-Drug Resistant Organisms: None Reported Past Surgical History: Cardiac Ablation Additional Past Surgical History / Comment(s): rt shoulder cyst on clavicle Past Anesthesia/Blood Transfusion Reactions: No Reported Reaction Past Psychological History: No Psychological Hx Reported Smoking Status: Never smoker Past Alcohol Use History: None Reported Past Drug Use History: None Reported - Past Family History Father Family Medical History: Coronary Artery Disease (CAD) Mother Family Medical History: Cancer Additional Family Medical History / Comment(s): OVARIAN CANCER Medications and Allergies Home Medications Medication Instructions Recorded Confirmed Type Aspirin 325 mg PO DAILY 01/27/20 12/21/23 History Propafenone HCl 225 mg PO DAILY 12/21/23 12/21/23 History Allergies Allergy/AdvReac Type Severity Reaction Status Date / Time No Known Allergies Allergy Verified 12/21/23 17:14 Physical Exam Vitals: Vital Signs Temp Pulse Pulse Resp BP BP Pulse Ox 12/22/23 07:10 97.5 F L 70 16 151/88 98 12/22/23 01:48 98.2 F 80 16 156/89 93 L 12/21/23 20:50 98.4 F 74 16 149/101 96 12/21/23 20:36 98.4 F 74 18 148/97 96 12/21/23 17:10 98.6 F 78 18 177/93 99 Intake and Output 12/21/23 12/22/23 12/22/23 22:59 06:59 14:59 Other: Voiding Method Toilet # Voids 3 Weight 80 kg GENERAL DESCRIPTION: Middle-aged male lying in bed, no distress. No tachypnea or accessory muscle of respiration use. HEENT: Shows Pallor , no scleral icterus. Oral mucous membrane is dry. No pharyngeal erythema or thrush NECK: Trachea central, no thyromegaly. LUNGS: Unlabored breathing. Clear to auscultation anteriorly. No wheeze or crackle. HEART: S1, S2, regular rate and rhythm. No loud murmur ABDOMEN: Soft, no tenderness , guarding or rigidity, no organomegaly EXTREMITIES: Left second toe with swelling redness wound on the plantar aspect with surrounding callus SKIN: No rash, no masses palpable. NEUROLOGICAL: The patient is awake, alert, oriented x3, mood and affect normal. Results CBC & Chem 7: 12/23/23 03:34 12/23/23 03:34 Labs: Abnormal Lab Results - Last 24 Hours (Table) 12/21/23 12/21/23 12/22/23 Range/Units 18:28 18:28 03:10 ESR 27 H (0-20) mm/Hr Sodium 133 L (137-145) mmol/L BUN 24 H (9-20) mg/dL Glucose 460 H (74-99) mg/dL POC Glucose (mg/dL) (70-110) mg/dL Hemoglobin A1c 16.2 H (<=6.0) % C-Reactive Protein 2.9 H (<1.0) mg/dL 12/22/23 12/22/23 Range/Units 07:12 11:56 ESR (0-20) mm/Hr Sodium (137-145) mmol/L BUN (9-20) mg/dL Glucose (74-99) mg/dL POC Glucose (mg/dL) 233 H 294 H (70-110) mg/dL Hemoglobin A1c (<=6.0) % C-Reactive Protein (<1.0) mg/dL Assessment and Plan (1) Diabetic ulcer of left foot Current Visit: Yes Status: Acute Code(s): E11.621 - TYPE 2 DIABETES MELLITUS WITH FOOT ULCER; L97.529 - NON-PRESSURE CHRONIC ULCER OTH PRT LEFT FOOT W UNSP SEVERITY SNOMED Code(s): 725164957 (2) Osteomyelitis of second toe of left foot Current Visit: Yes Status: Acute Code(s): M86.9 - OSTEOMYELITIS, UNSPECIFIED SNOMED Code(s): 459927551 Plan: 1patient presented to hospital with left second toe diabetic foot ulcer likely infected callus now with evidence of osteomyelitis on the plain x-rays failing outpatient therapy we will need to cover for the polymicrobial pat associated with diabetic foot infection patient has been seen by vascular surgery and planning for amputation to the patient seem to have agreed 2-for now we will continue the patient on vancomycin pharmacy to dose and Rocephin awaiting surgical procedure and deep culture if the wound is closed post amputation may not need long-term IV antibiotic therapy Question concern answered Will follow on a clinical condition and cultures to further adjust medication if needed Thank you for this consultation will follow this patient along with you Time with Patient: Greater than 30
[2023-12-23] MEDS: LIDOCAINE 1% INJ 10MG/ML (20 ML MDV) SQ ONE ×2 (11:48→12:07)
[2023-12-23] MEDS: LACTATED RINGERS 1,000 ML IV ONE (11:59)
[2023-12-23] MEDS ORDERED: PROPOFOL 10 MG/ML 20 ML VIAL IV ONE (11:59)
[2023-12-23] MEDS ORDERED: MIDAZOLAM 2 MG/2 ML VIAL ONE (11:59)
[2023-12-23] MEDS ORDERED: fentaNYL (PF) 50 MCG/ML 2 ML AMP ONE (11:59)
--- NOTE | 2023-12-23 12:50 | P.PCN ---
Description of Procedure: Preop diagnosis is gangrene of the left foot second toe with osteomyelit Postop the same Procedure left foot second toe amputation at metatarsophalangeal joint Patient was brought to the operating room left foot was prepped and draped in Prestel manner IV sedation and 1% lidocaine plain infiltrated elliptical incision made on the dorsal aspect of the foot deepened through skin fat and fascia and tendons were divided incision was extended to the plantar aspect deepened through skin fat and fascia and tendons were divided calcium elevator was used to elevate the periosteum to reach the metatarsal phalangeal joint ligaments were divided there was digital vessel which was suture-ligated with 3- 0 Prolene. Third toe was removed and sent for deep culture aerobic anaerobic wound was irrigated with saline hemostasis were controlled Incision was closed with 3-0 Vicryl and skin closed with 3-0 Monocryl dressing applied patient tarted the procedure well and transferred recovery room in satisfactory condition blood loss is about 20 cc
[2023-12-23] MEDS: HYDROcodone/APAP 5-325MG 1 EACH TAB PO PRN (15:20)
--- NOTE | 2023-12-23 15:44 | P.PN ---
Subjective Progress Note Date: 12/23/23 Interval History: 58-year-old male patient with past medical history significant for diabetes mellitus, hypertension, atrial fibrillation who presented to ER with a complaint of left second toe infection. Patient stated that he noticed ulcer of left second toe about 3 weeks ago, after patient bumped his forefoot. He went to ED initially and was started on 7-day course of Keflex and completed. Patient did not notice any improvement. Patient stated that it has progressively gotten worse, patient noticed that whole toe was swollen red and has started to expand to involve foot and his lower leg, has become increasingly painful. Patient denied any fever or chills. Patient is afebrile, heart rate 70, respiratory rate 16, blood pressure 151/88, saturating 98% on room air. CBC showed WBCs 9.4, hemoglobin 16.1, platelet 223 ESR 27, CRP 2.9. Sodium 133 potassium 4.6 BUN 24, creatinine 1.13 improved to 0.87. X-ray left foot showed osteomyelitis of distal phalanx of second digit of left foot. 4patient was seen and examined today. Pain was controlled. Patient underwent left second toe amputation by vascular surgery today. Currently on vancomycin and Rocephin. Awaiting surgical cultures. Infectious disease and vascular surgery following. Assessment and plan: Left foot osteomyelitis: Distal phalanx of second digit post amputation of second toe Presented with left second toe infection for 3 weeks X-ray foot showed osteomyelitis of distal phalanx second digit left foot. Monitor ESR CRP Monitor vitals and CBC Vancomycin and Rocephin Vascular surgery consulted--- status post amputation of second toe 12/22. ID consulted Awaiting surgical cultures. Diabetes mellitus: Uncontrolled Accu-Cheks, diabetic diet HbA1c 16.5 Patient currently not taking any medications at home. Sliding-scale insulin And Lantus. Will need to continue insulin at discharge, patient agreeable. Paroxysmal atrial fibrillation: Patient has history of atrial fibrillation, currently on aspirin 325 mg daily Continue home med Rythmol Patient agreeable to start anticoagulation at discharge, was on Xarelto previously DVT prophylaxis Subcutaneous heparin DVT prophylaxis: Monitor vital signs and labs Labs and medication were reviewed. Continue same treatment. Further recommendations as per clinical course of the patient PHYSICAL EXAMINATION: GENERAL: The patient is A&O x3, NAD HEENT: EOMI, Sclerae anicteric, Moist Mucous membranes Neck: Supple, Non tender, No JVD PULMONARY: Equal breath souds B/L, No wheezing, No crackles. CARDIOVASCULAR: S1, S2 present. No murmurs, rubs, or gallops. ABDOMEN: Soft, nontender, nondistended, normoactive bowel sounds. No guarding or rebound tenderness. MUSCULOSKELETAL: No edema, No cyanosis. No clubbing. Normal ROM. Intact peripheral pulses. EXTREMITIES: No cyanosis, clubbing, or pedal edema. NEUROLOGICAL: CN 2-12 grossly intact. No FND Skin: No Rash REVIEW OF SYSTEMS: CONSTITUTIONAL: No fever or chills. CARDIOVASCULAR: No chest pain, palpitations or syncope. PULMONARY: No shortness of breath, no cough, sore throat. GASTROINTESTINAL: No nausea, vomiting, diarrhea, abdominal pain. : No Dysuria, urgency, frequency. Extremities: No edema. NEUROLOGICAL: No headaches, no weakness, or numbness Dictation was produced using [employer] dictation software. please excuse any grammatical, word or spelling errors. Objective - Vital Signs Vital signs: Vital Signs Temp 97.6 F 12/23/23 13:17 Pulse 67 12/23/23 12:54 Resp 15 12/23/23 13:17 BP 129/81 12/23/23 13:17 Pulse Ox 96 12/23/23 13:17 FiO2 Intake & Output 12/22/23 12/23/23 12/23/23 18:59 06:59 18:59 Intake Total 400 Output Total 20 Balance 380 Weight 80 kg Intake: IV 400 Output: Estimated Blood Loss 20 Other: Voiding Method Toilet Toilet # Voids 4 3 # Bowel Movements 1 - Labs CBC & Chem 7: 12/23/23 03:34 12/23/23 03:34 Labs: Abnormal Lab Results - Last 24 Hours (Table) 12/22/23 12/22/23 12/23/23 Range/Units 17:17 20:07 03:34 MCV 79.4 L (80.0-97.0) FL Carbon Dioxide (21.6-31.8) mmol/L Glucose (70-110) mg/dL POC Glucose (mg/dL) 267 H 269 H (70-110) mg/dL Calcium (8.7-10.3) mg/dL 12/23/23 12/23/23 Range/Units 03:34 07:10 MCV (80.0-97.0) FL Carbon Dioxide 21.3 L (21.6-31.8) mmol/L Glucose 334 H (70-110) mg/dL POC Glucose (mg/dL) 259 H (70-110) mg/dL Calcium 8.6 L (8.7-10.3) mg/dL Microbiology - Last 24 Hours (Table) 12/21/23 20:15 Blood Culture - Preliminary Blood 12/21/23 21:52 Gram Stain - Preliminary Foot - Left Wound Culture - Preliminary
--- NOTE | 2023-12-23 16:32 | P.PN ---
Subjective Progress Note Date: 12/23/23 Principal diagnosis: Reason for follow-up is left second toe diabetic foot infection/osteomyelitis Patient is a 58-year-old male with a past medical history significant for diabetes mellitus hypertension atrial fibrillation has been dealing with the left second toe plantar callus and maceration for more than a month presented to hospital with worsening swelling redness to left second toe has been diagnosed with osteomyelitis in this patient was status post left second amputation completed on 12/23/2023. On today's evaluation that is 12/23/2023, patient has been afebrile, patient is breathing comfortably and is currently on room air, patient denies having any significant cough no chest pain shortness of breath, patient denies nausea vomiting or diarrhea and no abdominal pain patient pain to the left second toe is currently controlled. Patient white count is 6.09, creatinine 0.9 cultures are currently pending Objective - Vital Signs Vital signs: Vital Signs Temp 97.6 F 12/23/23 13:17 Pulse 75 12/23/23 14:46 Resp 15 12/23/23 13:17 BP 124/79 12/23/23 14:46 Pulse Ox 94 L 12/23/23 14:46 FiO2 Intake & Output 12/22/23 12/23/23 12/23/23 18:59 06:59 18:59 Intake Total 400 Output Total 20 Balance 380 Weight 80 kg Intake: IV 400 Output: Estimated Blood Loss 20 Other: Voiding Method Toilet Toilet # Voids 4 3 # Bowel Movements 1 - Exam GENERAL DESCRIPTION: Middle-age male lying in bed in no distress RESPIRATORY SYSTEM: Unlabored breathing , decreased breath sounds at bases HEART: S1 S2 regular rate and rhythm , ABDOMEN: Soft , no tenderness EXTREMITIES: Left second toe amputation site wound is currently dressed - Labs CBC & Chem 7: 12/23/23 03:34 12/23/23 03:34 Labs: Abnormal Lab Results - Last 24 Hours (Table) 12/22/23 12/22/23 12/23/23 Range/Units 17:17 20:07 03:34 MCV 79.4 L (80.0-97.0) FL Carbon Dioxide (21.6-31.8) mmol/L Glucose (70-110) mg/dL POC Glucose (mg/dL) 267 H 269 H (70-110) mg/dL Calcium (8.7-10.3) mg/dL 12/23/23 12/23/23 Range/Units 03:34 07:10 MCV (80.0-97.0) FL Carbon Dioxide 21.3 L (21.6-31.8) mmol/L Glucose 334 H (70-110) mg/dL POC Glucose (mg/dL) 259 H (70-110) mg/dL Calcium 8.6 L (8.7-10.3) mg/dL Microbiology - Last 24 Hours (Table) 12/21/23 20:15 Blood Culture - Preliminary Blood 12/21/23 21:52 Gram Stain - Preliminary Foot - Left Wound Culture - Preliminary Assessment and Plan (1) Diabetic ulcer of left foot Current Visit: Yes Status: Acute Code(s): E11.621 - TYPE 2 DIABETES MELLITUS WITH FOOT ULCER; L97.529 - NON-PRESSURE CHRONIC ULCER OTH PRT LEFT FOOT W UNSP SEVERITY SNOMED Code(s): 747647975 (2) Osteomyelitis of second toe of left foot Current Visit: Yes Status: Acute Code(s): M86.9 - OSTEOMYELITIS, UNSPECIFIED SNOMED Code(s): 557870088 Plan: 1patient presented to hospital with left second toe diabetic foot ulcer likely infected callus now with evidence of osteomyelitis on the plain x-rays failing outpatient therapy we will need to cover for the polymicrobial pat associated with diabetic foot infection patient has been seen by vascular surgery and patient is status post amputation of the left second toe and cultures are currently pending 2-f patient to continue with vancomycin pharmacy to dose and Rocephin while waiting for the culture to finalize Dictation was produced using [employer] dictation software. please excuse any grammatical, word or spelling errors. Time with Patient: Less than 30
[2023-12-23 17:25] LABS: Glucose,Whole Blood 340 mg/dL (70-110)
[2023-12-23] MEDS: INSULIN DETEMIR (LEVEMIR) 100 UNIT/ML SYR SQ SCH (17:29)
[2023-12-23 20:08] LABS: Glucose,Whole Blood 441 mg/dL (70-110)
[2023-12-23] MEDS: INSULIN ASPART (NovoLOG) 100 UNIT/ML VIAL SQ ONE (21:14)
[2023-12-24 07:02] LABS: Glucose,Whole Blood 184 mg/dL (70-110)
[2023-12-24 08:36] LABS: Basophils # (A) 0.06 X 10*3/uL (0.00-0.10); Basophils % (A) 0.8 %; Eosinophils # (A) 0.13 X 10*3/uL (0.04-0.35); Eosinophils % (A) 1.8 %; HCT 44.5 % (39.6-50.0); HGB 14.7 g/dL (13.0-17.0); Lymphocytes # (A) 2.16 X 10*3/uL (0.90-5.00); Lymphocytes % (A) 29.1 %; MCH 26.8 pg (27.0-32.0); MCV 81.2 FL (80.0-97.0); Mean Platelet Volume 11.4 FL (9.5-12.2); Monocytes # (A) 0.63 X 10*3/uL (0.20-1.00); Monocytes % (A) 8.5 %; NRBC Per 100 WBC 0 X 10*3/uL (0.00-0.01); Neutrophils # (A) 4.41 X 10*3/uL (1.80-7.70); Neutrophils % (A) 59.4 %; Platelet Count 231 X 10*3/uL (140-440); RBC 5.48 X 10*6/uL (4.40-5.60); RDW 11.8 % (11.5-14.5); WBC 7.42 X 10*3/uL (4.50-10.00)
[2023-12-24] MEDS: VANCOMYCIN TROUGH DUE 1 EACH MISC MISCELLANE ONE (09:58)
[2023-12-24 10:25] LABS: African American GFR (CKD) >90 (>60 ml/min/1.73 sqM); Anion Gap 3 mmol/L; Blood Urea Nitrogen 14 mg/dL (9-20); Carbon Dioxide 26 mmol/L (22-30); Chloride 106 mmol/L (98-107); Glucose 342 mg/dL (74-99); Non-African American GFR(CKD) >90 (>60 ml/min/1.73 sqM); Potassium 4.9 mmol/L (3.5-5.1); Sodium 135 mmol/L (137-145)
[2023-12-24] MEDS ORDERED: DEXTROSE 50% SYRINGE 50 ML IVP PRN ×2 (11:53)
[2023-12-24 12:20] LABS: Glucose,Whole Blood 246 mg/dL (70-110)
[2023-12-24] MEDS: INSULIN DETEMIR (LEVEMIR) 100 UNIT/ML SYR SQ ONE (12:46)
[2023-12-24] MEDS: INSULIN ASPART (NovoLOG) 100 UNIT/ML VIAL SQ SCH (12:47)
[2023-12-24] MEDS: AMPICILLIN-SULBACTAM 3 GM in SODIUM CHLORIDE 0.9% 100 ML IVPB SCH (13:30)
--- NOTE | 2023-12-24 15:12 | P.PN ---
Subjective Progress Note Date: 12/24/23 This is a 58-year-old gentleman with past medical history significant for atrial fibrillation, hypertension, diabetes mellitus and multiple other medical issues admitted with a left second toe diabetic foot infection worsening for over a month with x-ray reporting osteomyelitis distal phalanx second digit of left foot. Evaluated by vascular surgery and underwent amputation of left foot second toe. Tolerated procedure well. Reports pain controlled. Maintained on IV antibiotics of Unasyn. Afebrile, normal WBCs. Cultures finalizing.denies sweats chills or fever. Blood sugars uncontrolled in the 300s this morning, hemoglobin A1c 16.2. Reports he lost 30 pounds, quit his diabetic medication regime-was unable to obtain his Trulicity. Electrolytes and renal function stable. Denies chest pain, palpitations or shortness of breath, maintaining O2 sats in the mid 90s on room air. Hypertensive, heart rates varying from 60s to 90s. Objective - Vital Signs Vital signs: Vital Signs Temp 98.4 F 12/24/23 13:32 Pulse 66 12/24/23 13:32 Resp 18 12/24/23 13:32 BP 159/95 12/24/23 13:32 Pulse Ox 96 12/24/23 13:32 FiO2 Intake & Output 12/23/23 12/24/23 12/24/23 18:59 06:59 18:59 Intake Total 940 Output Total 395 1325 Balance 545 -1325 Intake: IV 400 Oral 540 Output: Urine 375 1325 Estimated Blood Loss 20 Other: Voiding Method Toilet Toilet Urinal # Voids 1 # Bowel Movements 1 - Exam PHYSICAL EXAM: VITAL SIGNS: [Reviewed] GENERAL: Alert and oriented x 3, sitting up in bed, no acute distress HEENT: Normocephalic, atraumatic, conjunctivae normal. eyes normal. NECK: Supple, no JVD. CARDIOVASCULAR: S1, S2, regular, no murmur RESPIRATION: Unlabored, equal air entry breath sounds diminished in the bases. ABDOMEN: Soft, nondistended, nontender. No guarding. no masses palpable. No a scites, No hepatosplenomegaly.Bowel sounds heard. LEGS: Left foot dressing, clean dry and intact, no edema. no swelling NERVOUS SYSTEM: Cranial N 2-12 grossly normal.No focal deficits. Strength and sensation grossly intact.. Skin: Warm and dry, no rash - Labs CBC & Chem 7: 12/24/23 03:49 12/24/23 09:39 Labs: Abnormal Lab Results - Last 24 Hours (Table) 12/23/23 12/23/23 12/24/23 Range/Units 17:22 20:07 03:49 MCH 26.8 L (27.0-32.0) pg Sodium (137-145) mmol/L Glucose (74-99) mg/dL POC Glucose (mg/dL) 340 H 441 H (70-110) mg/dL 12/24/23 12/24/23 12/24/23 Range/Units 07:01 09:39 12:16 MCH (27.0-32.0) pg Sodium 135 L (137-145) mmol/L Glucose 342 H (74-99) mg/dL POC Glucose (mg/dL) 184 H 246 H (70-110) mg/dL Microbiology - Last 24 Hours (Table) 12/23/23 12:30 Gram Stain - Preliminary Toe - Left Second 12/21/23 20:15 Blood Culture - Preliminary Blood 12/21/23 21:52 Anaerobic Culture - Final Foot - Left Anaerobic Gm Negative Bacilli 12/21/23 21:52 Gram Stain - Preliminary Foot - Left Wound Culture - Preliminary Streptococcus mitis oralis Assessment and Plan Assessment: Left foot osteomyelitis: Distal phalanx of second digit post amputation of second toe Diabetes mellitus, uncontrolled, hemoglobin A1c 16.2 Chronic paroxysmal atrial fibrillation, history of cardioversions Hypertension Medication noncompliance Plan: Continue on current medication resume ,monitoring and symptomatic treatment. Patient previously had been on Xarelto for his atrial fibrillation which he quit taking, will resume pending vascular surgery clearance-at the time that Xarelto is resumed, DC heparin subcu and aspirin. JULIETA inhibitor and beta- cayetano resumed also which patient previously had been on and quit taking. Telemetry monitoring. Levemir insulin increased for tighter blood sugar control with close monitoring of Accu-Cheks. Dietary consult initiated regarding extremely high hemoglobin A1c of 16.2, dietary teaching. Patient will require additional diabetic teaching outpatient in clinic. The impression and plan of care has been dictated as directed. : I performed a history and examination of this patient, discussed the same with the dictator. I agree with the dictator's note ,documented as a scribe. Any additional findings or plans will be noted.
[2023-12-24] MEDS: lisinopriL 5 MG TAB PO SCH (15:37)
[2023-12-24 17:08] LABS: Glucose,Whole Blood 376 mg/dL (70-110)
[2023-12-24] MEDS: RIVAROXABAN 20 MG TAB PO SCH (17:17)
[2023-12-24 20:27] LABS: Glucose,Whole Blood 431 mg/dL (70-110)
[2023-12-24] MEDS ORDERED: METOPROLOL TARTRATE 50 MG TAB PO SCH (21:00)
[2023-12-25 05:45] LABS: African American GFR (CKD) >90 (>60 ml/min/1.73 sqM); Non-African American GFR(CKD) >90 (>60 ml/min/1.73 sqM)
[2023-12-25 06:53] LABS: Glucose,Whole Blood 177 mg/dL (70-110)
[2023-12-25 07:24] VITALS: TEMP 98
[2023-12-25] MEDS: INSULIN DETEMIR (LEVEMIR) 100 UNIT/ML SYR SQ SCH (08:09)
--- NOTE | 2023-12-25 11:22 | P.DS ---
Providers Date of admission: 12/21/23 19:27 Expected date of discharge: 12/25/23 Attending physician: Dustin Vargas MD Consults: 12/21/23 18:56 Consult Physician Urgent Consulting Provider: Jordan Sen Consult Reason/Comments: Osteomyelitis of second toe on left foot Do you want consulting provider notified?: Yes 12/22/23 09:21 Consult Physician Routine Consulting Provider: Adrien Ya Consult Reason/Comments: Left foot osteomyelitis Do you want consulting provider notified?: Yes Primary care physician: Dustin Vargas MD Hospital Course: Final Diagnosis: Left foot osteomyelitis: Distal phalanx of second digit post amputation of second toe Diabetes mellitus, uncontrolled, hemoglobin A1c 16.7 Chronic paroxysmal atrial fibrillation, history of cardioversions Hypertension Medication noncompliance Hospital course:This is a 58-year-old gentleman with past medical history significant for atrial fibrillation, hypertension, diabetes mellitus and multiple other medical issues admitted with a left second toe diabetic foot infection worsening for over a month with x-ray reporting osteomyelitis distal phalanx second digit of left foot. Evaluated by vascular surgery and underwent amputation of left foot second toe. Tolerated procedure well. Reports pain controlled. Maintained on IV antibiotics of Unasyn. Afebrile, normal WBCs. Cultures finalizing.denies sweats chills or fever. Blood sugars uncontrolled in the 300s this morning, hemoglobin A1c 16.2. Reports he lost 30 pounds, quit his diabetic medication regime-was unable to obtain his Trulicity. Electrolytes and renal function stable. Denies chest pain, palpitations or shortness of breath, maintaining O2 sats in the mid 90s on room air. Hypertensive, heart rates varying from 60s to 90s. Patient previously had been on Xarelto for his atrial fibrillation which he quit taking, will resume pending vascular surgery clearance-at the time that Xarelto is resumed, DC heparin subcu and aspirin. JULIETA inhibitor resumed also which patient previously had been on and quit taking. Telemetry monitoring. Levemir insulin increased for tighter blood sugar control with close monitoring of Accu-Cheks. Dietary consult initiated regarding extremely high hemoglobin A1c of 16.2, dietary teaching. Patient will require additional diabetic teaching outpatient in clinic. Significant clinical improvement. Patient declined patch washer yesterday, "states he can tell when he is in atrial fibrillation." Currently regular S1-S2 .pain controlled. Denies chest pain, palpitations or shortness of breath. Denies chills or sweats. Afebrile. Blood sugars better controlled, current Accu-Chek 177. patient will be discharged home today in a stable condition with guarded prognosis pending finalization of cultures, final DC recommendations/antibiotics and clearance as per infectious disease. Local wound care as per vascular surgery. Case management to ensure patient has glucometer and testing supplies. The impression and plan of care has been dictated as directed. : I performed a history and examination of this patient, discussed the same with the dictator. I agree with the dictator's note ,documented as a scribe. Any additional findings or plans will be noted. Patient Condition at Discharge: Stable Plan - Discharge Summary Discharge Rx Participant: Yes New Discharge Prescriptions: New Pantoprazole [Protonix] 40 mg PO AC-BRKFST tab Acetaminophen Tab [Tylenol] 650 mg PO Q6HR PRN tab PRN Reason: Mild Pain Or Fever > 100.5 Insulin Glargine,Hum.rec.anlog [Lantus Solostar Pen] 20 units SQ DAILY 30 Days #2 each Rivaroxaban [Xarelto] 20 mg PO W/SUPPER #30 tab lisinopriL [Zestril] 5 mg PO DAILY #30 tab Discontinued Aspirin 325 mg PO DAILY No Action Propafenone HCl 225 mg PO DAILY Discharge Medication List Propafenone HCl 225 mg PO DAILY 12/21/23 [History] Acetaminophen Tab [Tylenol] 650 mg PO Q6HR PRN tab 12/25/23 [Rx] Insulin Glargine,Hum.rec.anlog [Lantus Solostar Pen] 20 units SQ DAILY 30 Days #2 each 12/25/23 [Rx] Pantoprazole [Protonix] 40 mg PO AC-BRKFST tab 12/25/23 [Rx] Rivaroxaban [Xarelto] 20 mg PO W/SUPPER #30 tab 12/25/23 [Rx] lisinopriL [Zestril] 5 mg PO DAILY #30 tab 12/25/23 [Rx] Follow up Appointment(s)/Referral(s): None,Stated [REFERRING] - 3 Days (please follow up and establish a new primary care doctor. Follow-up with [facility].) Patient Instructions/Handouts: Lisinopril (By mouth), Insulin Glargine (By injection), Rivaroxaban (By mouth), Osteomyelitis (DC) Activity/Diet/Wound Care/Special Instructions: Follow-up with [facility] in 3 to 4 days
[2023-12-25 12:03] LABS: Glucose,Whole Blood 175 mg/dL (70-110)
[2023-12-25 13:55] VITALS: BP 124/80; PULSE 64; RESP 17
--- NOTE | 2023-12-25 16:50 | P.PN ---
Progress Note - Text 58-year-old gentleman patient had a left foot second toe amputation with primary closure today will change the dressing wound is clean replaced as extra silver and dressing was applied patient going home today on p.o. antibiotic patient will come to my office on at noon will change her dressing nonweightbearing patient will use offloading shoe
--- NOTE | 2023-12-26 12:40 | P.PN ---
Subjective Progress Note Date: 12/24/23 Principal diagnosis: Reason for follow-up is left second toe diabetic foot infection/osteomyelitis Patient is a 58-year-old male with a past medical history significant for diabetes mellitus hypertension atrial fibrillation has been dealing with the left second toe plantar callus and maceration for more than a month presented to hospital with worsening swelling redness to left second toe has been diagnosed with osteomyelitis in this patient was status post left second amputation completed on 12/23/2023. On today's evaluation that is 12/24/2023, Patient is afebrile this morning patient denies having any chest pain shortness of breath or cough, the patient is breathing comfortably on room air, patient denies any abdominal pain no diarrhea no nausea no vomiting, patient pain to the left foot is currently controlled. Patient did have white count 7.42, creatinine 0.88 Vanco trough is 12.2 cultures currently growing Streptococcus mitis and anaerobe Objective - Vital Signs Vital signs: Vital Signs Temp 98.4 F 12/24/23 07:00 Pulse 73 12/24/23 07:00 Resp 16 12/24/23 07:00 BP 152/96 12/24/23 07:00 Pulse Ox 97 12/24/23 07:00 FiO2 Intake & Output 12/23/23 12/24/23 12/24/23 18:59 06:59 18:59 Intake Total 940 Output Total 395 1325 Balance 545 -1325 Intake: IV 400 Oral 540 Output: Urine 375 1325 Estimated Blood Loss 20 Other: Voiding Method Toilet Toilet Urinal # Voids 1 # Bowel Movements 1 - Exam GENERAL DESCRIPTION: Middle-age male lying in bed in no distress RESPIRATORY SYSTEM: Unlabored breathing , decreased breath sounds at bases HEART: S1 S2 regular rate and rhythm , ABDOMEN: Soft , no tenderness EXTREMITIES: Left second toe amputation site wound is currently dressed - Labs CBC & Chem 7: 12/24/23 03:49 12/25/23 04:42 Labs: Abnormal Lab Results - Last 24 Hours (Table) 12/23/23 12/23/23 12/24/23 Range/Units 17:22 20:07 03:49 MCH 26.8 L (27.0-32.0) pg Sodium (137-145) mmol/L Glucose (74-99) mg/dL POC Glucose (mg/dL) 340 H 441 H (70-110) mg/dL 12/24/23 12/24/23 Range/Units 07:01 09:39 MCH (27.0-32.0) pg Sodium 135 L (137-145) mmol/L Glucose 342 H (74-99) mg/dL POC Glucose (mg/dL) 184 H (70-110) mg/dL Microbiology - Last 24 Hours (Table) 12/23/23 12:30 Gram Stain - Preliminary Toe - Left Second 12/21/23 20:15 Blood Culture - Preliminary Blood 12/21/23 21:52 Anaerobic Culture - Final Foot - Left Anaerobic Gm Negative Bacilli 12/21/23 21:52 Gram Stain - Preliminary Foot - Left Wound Culture - Preliminary Streptococcus mitis oralis Assessment and Plan (1) Diabetic ulcer of left foot Status: Acute Code(s): E11.621 - TYPE 2 DIABETES MELLITUS WITH FOOT ULCER; L97.529 - NON-PRESSURE CHRONIC ULCER OTH PRT LEFT FOOT W UNSP SEVERITY SNOMED Code(s): 846685392 (2) Osteomyelitis of second toe of left foot Status: Acute Code(s): M86.9 - OSTEOMYELITIS, UNSPECIFIED SNOMED Code(s): 167081385 Plan: 1patient presented to hospital with left second toe diabetic foot ulcer likely infected callus now with evidence of osteomyelitis on the plain x-rays failing outpatient therapy we will need to cover for the polymicrobial pat associated with diabetic foot infection patient has been seen by vascular surgery and patient is status post amputation of the left second toe and cultures are currently growing Streptococcus mitis anaerobe 2-we will discontinue vancomycin and Rocephin and start the patient on Unasyn 3 g every 6 hour and reevaluate the wound tomorrow Dictation was produced using [email or web address] dictation software. please excuse any grammatical, word or spelling errors. Time with Patient: Less than 30
--- NOTE | 2023-12-26 12:41 | P.PN ---
Subjective Progress Note Date: 12/25/23 Principal diagnosis: Reason for follow-up is left second toe diabetic foot infection/osteomyelitis Patient is a 58-year-old male with a past medical history significant for diabetes mellitus hypertension atrial fibrillation has been dealing with the left second toe plantar callus and maceration for more than a month presented to hospital with worsening swelling redness to left second toe has been diagnosed with osteomyelitis in this patient was status post left second amputation completed on 12/23/2023. On today's evaluation that is 12/25/2023,the patient denies any fever or any chills, patient is breathing comfortably on room air, the patient denies chest pain shortness of breath and no significant cough, patient denies abdominal pain, no nausea vomiting or diarrhea. Patient has pain to the left foot secondary potential site wound. Patient did have a creatinine 0.81 local culture with anaerobic gram-negative bacilli Streptococcus mitis oralis Enterococcus faecalis Objective - Vital Signs Vital signs: Vital Signs Temp 98 F 12/25/23 07:24 Pulse 67 12/25/23 07:24 Resp 16 12/25/23 07:24 BP 133/83 12/25/23 07:24 Pulse Ox 99 12/25/23 07:24 FiO2 Intake & Output 12/24/23 12/25/23 12/25/23 18:59 06:59 18:59 Intake Total 1080 560 Output Total 400 925 Balance 680 -365 Intake: Intake, IV Titration 200 Amount Ampicillin-Sulbactam 3 gm 200 In Sodium Chloride 0.9% 100 ml @ 200 mls/hr IVPB Q6HR [facility] Rx#:[id number] Oral 1080 360 Output: Urine 400 925 Other: Voiding Method Toilet Urinal # Voids 1 - Exam GENERAL DESCRIPTION: Middle-age male lying in bed in no distress RESPIRATORY SYSTEM: Unlabored breathing , decreased breath sounds at bases HEART: S1 S2 regular rate and rhythm , ABDOMEN: Soft , no tenderness EXTREMITIES: Left second toe amputation site small area open but surrounding swelling redness has improved - Labs CBC & Chem 7: 12/24/23 03:49 12/25/23 04:42 Labs: Abnormal Lab Results - Last 24 Hours (Table) 12/24/23 12/24/23 12/24/23 Range/Units 12:16 17:05 20:25 POC Glucose (mg/dL) 246 H 376 H 431 H (70-110) mg/dL Hemoglobin A1c (<=6.0) % 12/25/23 12/25/23 Range/Units 04:42 06:52 POC Glucose (mg/dL) 177 H (70-110) mg/dL Hemoglobin A1c 16.7 H (<=6.0) % Microbiology - Last 24 Hours (Table) 12/21/23 20:15 Blood Culture - Preliminary Blood 12/23/23 12:30 Gram Stain - Preliminary Toe - Left Second Assessment and Plan (1) Diabetic ulcer of left foot Status: Acute Code(s): E11.621 - TYPE 2 DIABETES MELLITUS WITH FOOT ULCER; L97.529 - NON-PRESSURE CHRONIC ULCER OTH PRT LEFT FOOT W UNSP SEVERITY SNOMED Code(s): 558241356 (2) Osteomyelitis of second toe of left foot Status: Acute Code(s): M86.9 - OSTEOMYELITIS, UNSPECIFIED SNOMED Code(s): 7 [id number] Plan: 1patient presented to hospital with left second toe diabetic foot ulcer likely infected callus now with evidence of osteomyelitis on the plain x-rays failing outpatient therapy we will need to cover for the polymicrobial pat associated with diabetic foot infection patient has been seen by vascular surgery and patient is status post amputation of the left second toe and cultures are currently growing Streptococcus mitis anaerobe 2-patient will be advised Augmentin 875 mg twice daily for 2 weeks local wound care with Aquacel silver dressing and close outpatient follow-up advised if any worsening swelling redness or further opening of the wound he needs to come back to the hospital Dictation was produced using [employer] dictation software. please excuse any grammatical, word or spelling errors. Time with Patient: Less than 30
--- NOTE | 2023-12-27 14:47 | PN ---
PROGRESS NOTE A 58-year-old diabetic male, who came with left foot 2nd toe osteo with marked redness and we did the amputation of the 2nd toe. Today, dressing has been changed. We used Aquacel silver. The patient is on IV antibiotic under the care of Infectious Disease. The patient will need front offloading shoes. FISH / IJN: [id number] /
== END 2023-12-25 17:10 | disposition home or self-care (01) | DRG 617 ==
LOC: EC 16:47 → 5NMEDONC 19:27
PROVIDERS: ADMIT Family Medicine; ATTEND Family Medicine
PROC: 0Y6S0Z0 Detachment at Left 2nd Toe, Complete, Open Approach (ICD-10-PCS; principal; 2023-12-23 10:15)
DX: E11.69 Type 2 diabetes mellitus with other specified complication (principal); E11.52 Type 2 diabetes mellitus with diabetic peripheral angiopathy with gangrene; M86.9 Osteomyelitis, unspecified; I96 Gangrene, not elsewhere classified; L03.032 Cellulitis of left toe; E11.65 Type 2 diabetes mellitus with hyperglycemia; E11.628 Type 2 diabetes mellitus with other skin complications; E11.621 Type 2 diabetes mellitus with foot ulcer; L97.529 Non-pressure chronic ulcer of other part of left foot with unspecified severity; I48.0 Paroxysmal atrial fibrillation; E11.40 Type 2 diabetes mellitus with diabetic neuropathy, unspecified; I10 Essential (primary) hypertension; Z79.4 Long term (current) use of insulin; Z79.01 Long term (current) use of anticoagulants; Z79.82 Long term (current) use of aspirin; Z91.148 Patient's other noncompliance with medication regimen for other reason; Z28.310 Unvaccinated for COVID-19; Z28.21 Immunization not carried out because of patient refusal; Z79.899 Other long term (current) drug therapy
CPT/HCPCS: 36415; 80048; 80053; 80202; 82565; 83036; 83605; 85025; 85652; 86140; 87040; 87070; 87075; 87077; 87186; 87205; 96365; 99285